=== PATIENT | male | born 1975 | race Caucasian/White ===

== ENCOUNTER 2019-04-18 12:32 | Emergency (ER) | payer OTHER, SELFPAY ==
[2019-04-18 12:46] VITALS: BP 145/96; PULSE 94; RESP 18; TEMP 36.5; O2SAT 100
--- NOTE | 2019-04-18 13:07 | ED.GENADULT ---
HPI - General Adult General Chief complaint: Unspecified Stated complaint: ELEVATED BLOOD PRESSURE Time Seen by Provider: 04/18/19 13:07 Source: patient Mode of arrival: ambulatory Limitations: no limitations History of Present Illness HPI narrative: 43-year-old male patient presents to the [facility] with complaints of high blood pressure that he noticed today. Patient states that he was at work today and there was a blood pressure cuff available and he happened to take his blood pressure and noticed that it was 150s over 100. Denies any chest pain, shortness of breath, headaches, lightheadedness or dizziness. Patient states is been quite a while since he has seen his primary doctor. Patient states that he did call his primary doctor today however they cannot get him in until the second week of May. Patient was advised to follow-up with the urgent care or ER if he had concerning symptoms. Patient states he has been under some stress recently at work. Related Data Home Medications Medication Instructions Recorded Confirmed No Home Medications 04/18/19 04/18/19 Allergies Allergy/AdvReac Type Severity Reaction Status Date / Time No Known Allergies Allergy Mild Verified 04/18/19 12:52 Review of Systems Review of Systems: Narrative: CONSTITUTIONAL: Denies fever, chills, or sweats. EYES: Denies visual changes, redness, or discharge. ENT: Denies rhinorrhea, congestion, sore throat, or otalgia. CARDIOVASCULAR: Denies chest pain, palpitations, or edema. RESPIRATORY: Denies cough or dyspnea. GASTROINTESTINAL: Denies abdominal pain, nausea, vomiting, or diarrhea. GENITOURINARY: Denies dysuria or hematuria. SKIN: Denies rash or itching. MUSCULOSKELETAL: Denies back pain, joint pain, or myalgia. NEUROLOGIC: Denies headache, numbness, or weakness. PSYCHIATRIC: Denies anxiety or depression. [facility] Family History Family History Mother Family history of diabetes mellitus in first degree relative Father Family history of malignant neoplasm of urinary bladder Social History Social History Alcohol intake: current Comments At the time of my signature I agree with nursing past medical history, surgical, social, and family history. There is no relevant family history pertinent to the presenting complaint. Exam Narrative: Exam Narrative: GENERAL: Well-appearing, well-nourished, and in no acute distress. HEAD: Normocephalic, atraumatic. EYES: PERRLA and EOMI. ENT: Nares clear, no rhinorrhea or epistaxis. Mucous membranes moist. Bilateral TMs are clear no erythema or foreign bodies in the canal. Posterior pharynx with no erythema, tonsillectomy, exudates or lesions present. NECK: Supple. No lymphadenopathy CHEST: Clear to auscultation. No respiratory distress. HEART: Regular rate and rhythm. No murmur heard. Normal peripheral pulses. ABDOMEN: Soft, nontender, nondistended, normal active bowel sounds. EXTREMITIES: Normal range of motion. No edema. SKIN: Warm, dry, no rash. NEURO: No focal deficits. Alert and oriented x3. Course Reevaluation(s) Reevaluation #1: Discussed with patient that his EKG does not show any acute ST elevation and the fact that he is asymptomatic at this time is reassuring. Discussed with patient that if he does have symptoms such as lightheadedness, dizziness, vision changes, headaches, chest pain, shortness of breath and he needs to go the ER right away otherwise I would continue to try and follow-up with his primary doctor for further evaluation and treatment. A copy of his EKG was provided to the patient so that he may take it to the doctor on his visit. Patient verbalized understanding denies any other questions or concerns. Date: 04/18/19 Time: 13:19 Vital Signs Vital signs: Vital Signs Temperature 36.5 C 04/18/19 12:46 Pulse Rate 94 04/18/19 12:46 Respiratory Rate 18 04/18/19 12
--- NOTE | 2019-04-18 13:12 | ECG_ITS ---
Measurements Intervals [place] Rate: 82 P: 37 DC: 130 QRS: 66 QRSD: 93 T: -1 QT: 365 QTc: 427 Interpretive Statements SINUS RHYTHM BORDERLINE ST-T WAVE ABNORMALITY- INFERIOR LEADS BORDERLINE ECG Electronically Signed On 04-18-2019 13:20:31 [employer] DYNAMIC[employer] by Bhargav Waters D.O.
--- NOTE | 2019-04-18 13:18 | PC.NURSE ---
Pt called PMD concerned about PMD
--- NOTE | 2019-04-18 13:18 | PC.NURSE ---
Pt states he called PMD office concerned about BP--was told could not see may to come here--advised we are not able to do wprk-up . Admittedly gets very stressed and worked up at work
== END 2019-04-18 13:23 | disposition home or self-care (01) ==
PROVIDERS: Emergency Provider Nurse Practitioner Family; PCP Family Medicine
DX: I10 Essential (primary) hypertension (principal)
CPT/HCPCS: 93005; 99213; G0463

== ENCOUNTER 2021-01-17 15:53 | Emergency (ER) | payer OTHER, SELFPAY ==
[2021-01-17 16:04] VITALS: BP 157/88; PULSE 94; RESP 18; TEMP 37.2; O2SAT 99
--- NOTE | 2021-01-17 16:22 | ED.EAR ---
HPI - Ear Problem General Chief complaint: Ear Stated complaint: ear infection Source: patient and RN notes reviewed Limitations: no limitations History of Present Illness HPI Narrative: The patient, non smoker/ occ drinker on minimal meds, presents with left ear discomfort. Patient states his long history of intermittent otitis externa. He now has a 1- 2 week history of left ear discomfort with discharge that was initially was mucopurulent and has now turned barillas-black. Symptoms are mild, unrelieved with previous swimmers ear preps; no fever, tinnitus, skin changes and he has mild decreased hearing Related Data Allergies Allergy/AdvReac Type Severity Reaction Status Date / Time No Known Allergies Allergy Mild Verified 01/17/21 16:07 Review of Systems Review of Systems: The patient has been informed that they may have pre-hypertension or Hypertension based on a BP reading in the department. I recommend that the patient call the primary care provider listed on their discharge instructions or a physician of their choice this week to arrange follow up for further evaluation of possible pre-hypertension or Hypertension General/Constitutional: No weight loss,fever Eyes: N0: Redness,discharge Ears/Nose/Throat: No: Epistaxis,ear discharge Respiratory: Denies: Hemoptysis Gastrointestinal: No Vomiting, Bleeding-rectal Skin: No Lumps, eruption Neurologic: No Focal Weakness,Sz Hematologic: Denies: Petechiae/Purpura Psychiatric: No: Suicida ideationl All Other Systems: Reviewed and Negative PMFSH Surgical History Surgical History History of tonsillectomy and adenoidectomy Family History Family History Mother Lung cancer Hypertension Diabetes mellitus Father Family history of malignant neoplasm of urinary bladder Social History Social History Smoking status: Never smoker Smokeless tobacco user: chewing tobacco Second hand tobacco smoke exposure: No Alcohol intake: current Drinks per week: 25 Alcohol use details: Beer Substance use: never Substance use type: does not use Gender identity (if verbalized by the patient): Male Comments At time of signature, agree with nursing past medical, surgical, social and family history. There is no relevant family history pertinent to the presenting complaint Exam Narrative: General Appearance: Well appearing, Well nourished, No distress EYE: PERRLA , EOMI , Normal corneas Ears: Left EAC with mucopus of fungal black, barillas color; right external ear normal, Auditory canal normal Nose: Normal nose, Nares clear Mouth/Throat: Normal appearing, Normal lips, Supple, Respiratory: Airway patent, No respiratory distress Skin: Warm, Dry Neurological: A&O x3, Normal affect Course Vital Signs Vital signs: Vital Signs Temperature 98.9 F 01/17/21 16:04 Pulse Rate 94 01/17/21 16:04 Respiratory Rate 18 01/17/21 16:04 Blood Pressure 157/88 H 01/17/21 16:04 Pulse Oximetry 99 01/17/21 16:04 Temperature 98.9 F 01/17/21 16:04 Pulse Rate 94 01/17/21 16:04 Respiratory Rate 18 01/17/21 16:04 Blood Pressure 157/88 H 01/17/21 16:04 Pulse Oximetry 99 01/17/21 16:04 Medical Decision Making Vital Signs Vital Signs: Vital Signs Temperature 98.9 F 01/17/21 16:04 Pulse Rate 94 01/17/21 16:04 Respiratory Rate 18 01/17/21 16:04 Blood Pressure 157/88 H 01/17/21 16:04 Pulse Oximetry 99 01/17/21 16:04 Temperature 98.9 F 01/17/21 16:04 Pulse Rate 94 01/17/21 16:04 Respiratory Rate 18 01/17/21 16:04 Blood Pressure 157/88 H 01/17/21 16:04 Pulse Oximetry 99 01/17/21 16:04 Discharge Plan Discharge Clinical Impression: Otitis externa Qualifiers: Otitis externa type: other infective Chronicity: acute Laterality: left Quali
== END 2021-01-17 16:35 | disposition home or self-care (01) ==
PROVIDERS: Emergency Provider Emergency Medicine; PCP Family Medicine
DX: H60.392 Other infective otitis externa, left ear (principal); F17.220 Nicotine dependence, chewing tobacco, uncomplicated
CPT/HCPCS: 99213; G0463

== ENCOUNTER 2021-12-26 00:38 | Day surgery (SDC) | payer OTHER, SELFPAY ==
[2021-12-11 12:59] VITALS: BMI 29.2
--- NOTE | 2021-12-25 13:59 | PM.HPGS ---
History of Present Illness History of Present Illness Consent: Risks, benefits, and alternatives have been discussed and questions answered. Patient agrees to proceed with procedure. Chief complaint: neoplasm screening Narrative: Nura Jose is a 46 year old male referred for colon cancer screening. Review of Systems Review of Systems: All systems reviewed & are unremarkable except as noted in HPI and below PMFSH Surgical History Surgical History History of tonsillectomy and adenoidectomy Family History Family History Mother Lung cancer Hypertension Diabetes mellitus Father Family history of malignant neoplasm of urinary bladder Social History Social History Smoking status: Never smoker Smokeless tobacco user: chewing tobacco Second hand tobacco smoke exposure: No Alcohol intake: current Drinks per week: 30 Alcohol use details: BEER Substance use: never Substance use type: does not use Living arrangements: with family Gender identity (if verbalized by the patient): Male Spiritual care concerns: No Meds Home Medications and Allergies Home Medications Medication Instructions Recorded Confirmed Type atorvastatin 10 mg tablet 10 mg PO QPM #90 tabs 08/01/21 12/11/21 Rx sildenafil 100 mg tablet 100 mg PO DAILY PRN sexual 10/20/21 12/11/21 Rx activity #30 tabs Allergies Allergy/AdvReac Type Severity Reaction Status Date / Time No Known Allergies Allergy Mild Verified 12/26/21 06:21 Exam Const: General: alert Orientation/consciousness: patient oriented x3 Resp: Auscultation: clear to auscultation bilaterally Cardio: Rhythm: regular rhythm GI: GI Palp: Yes Soft to palpation and No Tenderness to palpation present (GI) Neuro: General: patient oriented x3 Assessment and Plan Assessment and plan (1) Colon cancer screening: Code(s): Z12.11 - Encounter for screening for malignant neoplasm of colon Status: Acute Assessment and Plan: Colonoscopy with possible biopsy or polypectomy or cautery or injection of substances.
[2021-12-26 06:24] VITALS: BP 125/83; PULSE 95; RESP 18; TEMP 36.4; O2SAT 99
[2021-12-26] MEDS: LACTATED RINGERS 1,000 ML 150 ML IV CONT (06:36)
--- NOTE | 2021-12-26 07:17 | P.PNAN_ITS ---
Anes - Initial Pre Proc Eval Procedure: Operation Date: 12/26/21 07:30 Proposed Procedures p Screening Colonoscopy - Yariel Gill MD Date/Time: 12/26/21 07:17 Surgeon: Yariel Gill MD Pre Op Diagnosis: neoplasm screening Patient Data Age: 46 Gender: M Height: 1.83 m Weight: 97.3 kg Last Vital Signs Temp 97.5 F L 12/26/21 06:24 Pulse 95 12/26/21 06:24 Resp 18 12/26/21 06:24 BP 125/83 12/26/21 06:24 Pulse Ox 99 12/26/21 06:24 O2 Del Method Room Air 12/26/21 06:24 Allergies Allergy/AdvReac Type Severity Reaction Status Date / Time No Known Allergies Allergy Mild Verified 12/26/21 06:21 Home Medications Medication Instructions Recorded Confirmed Type atorvastatin 10 mg tablet 10 mg PO QPM #90 tabs 08/01/21 12/11/21 Rx sildenafil 100 mg tablet 100 mg PO DAILY PRN sexual 10/20/21 12/11/21 Rx activity #30 tabs Patient hx anesthesia problems: none Family hx anesthesia problems: none Results Review: All pre-operative results and documents have been reviewed as part of the pre- operative evaluation. [facility] Surgical History Surgical History History of tonsillectomy and adenoidectomy Family History Family History Mother Lung cancer Hypertension Diabetes mellitus Father Family history of malignant neoplasm of urinary bladder Social History Social History Smoking status: Never smoker Smokeless tobacco user: chewing tobacco Second hand tobacco smoke exposure: No Alcohol intake: current Drinks per week: 30 Alcohol use details: BEER Substance use: never Substance use type: does not use Living arrangements: with family Gender identity (if verbalized by the patient): Male Spiritual care concerns: No Anes - Eval Final PreProcedure Day of Procedure 12/26/21 07:17 Patient weight: normal Heart: regular rate and rhythm Lungs: clear to auscultation Airway: Mallampati scale class II Neurological: alert and oriented Last oral intake: >/= 8 hours ASA classification: II Emergent: no Anesthetic plan: proceed Anesthesia type and monitoring: general GIVS and standard monitoring Results Review: All pre-operative results and documents have been reviewed as part of the pre- operative evaluation. Informed Consent: The patient's anesthetic plan and its attendant risks and benefits were discussed with the patient/family/POA. Questions were solicited and answers provided to the satisfaction of the patient/family/POA.
[2021-12-26 07:44] VITALS: BP 119/79; PULSE 86; RESP 20; O2SAT 97
[2021-12-26 07:54] VITALS: BP 119/83; PULSE 85; RESP 20; O2SAT 96
[2021-12-26 08:04] VITALS: BP 129/92; PULSE 80; RESP 19; O2SAT 97
== END 2021-12-26 08:17 | disposition home or self-care (01) ==
PROVIDERS: PCP Family Medicine; Visit Provider Internal Medicine Gastroenterology
PROC: 0DJD8ZZ Inspection of Lower Intestinal Tract, Via Natural or Artificial Opening Endoscopic (ICD-10-PCS; CPT 45378; principal; 2021-12-26 07:30)
DX: Z12.11 Encounter for screening for malignant neoplasm of colon (principal); F17.220 Nicotine dependence, chewing tobacco, uncomplicated
CPT/HCPCS: 45378; J2704; J7120